=== PATIENT | female | born 1990 | race Caucasian/White ===

== ENCOUNTER 2017-10-13 18:55 | Emergency (ER) | payer OTHER ==
[~2017-10-13] VITALS: Ht 170.2 cm; Wt 59.1 kg
[2017-10-13 20:13] VITALS: BP 121/70
== END 2017-10-13 20:26 | disposition home or self-care (01) ==
LOC: EMS 18:55
DX: R21 Rash and other nonspecific skin eruption (principal); F17.210 Nicotine dependence, cigarettes, uncomplicated; J45.909 Unspecified asthma, uncomplicated; Z88.0 Allergy status to penicillin
CPT/HCPCS: 99282; 99406

== ENCOUNTER 2018-04-10 18:28 | Emergency (ER) | payer OTHER ==
[~2018-04-10] VITALS: Ht 170.2 cm; Wt 58.2 kg
[2018-04-10 19:12] VITALS: BP 121/72
[2018-04-10 20:03] LABS: BASOPHILS % (AUTO) 0.4 % (0.0-2.0); EOSINOPHILS % (AUTO) 1.6 % (1.0-6.0); HEMATOCRIT 35.8 % (36-46); LYMPHOCYTES # (AUTO) 1.1 K/uL (1.0-4.8); LYMPHOCYTES % (AUTO) 19.8 % (22.0-44.0); MEAN CORPUSCULAR HEMOGLOBIN 26.3 pg (26.0-34.0); MEAN CORPUSCULAR HGB CONC 33.6 G/dL (31.0-37.0); MEAN CORPUSCULAR VOLUME 78 fL (80-100); MONOCYTES # (AUTO) 0.6 K/uL (0.1-1.0); MONOCYTES % (AUTO) 10.9 % (2.0-9.0); NEUTROPHILS # (AUTO) 3.7 K/uL (1.8-7.7); NEUTROPHILS % (AUTO) 67.3 % (40.0-70.0); PLATELET COUNT (AUTO) 204 K/uL (150-450); RED BLOOD CELL COUNT(AUTO) 4.58 MIL/uL (4.00-5.20); RED CELL DISTRIBUTION WIDTH 17.5 % (11.5-14.5)
[2018-04-10 20:17] LABS: ANION GAP 6 mmol/L (8-16); CALCIUM, TOTAL 8.9 mg/dL (8.8-10.5); CARBON DIOXIDE 30 mmol/L (22-29); CHLORIDE 102 mmol/L (98-107); CREATININE 0.83 mg/dL (0.60-1.30); GLOMERULAR FILTR. RATE CALC > 60 mL/min (>60); GLUCOSE,RANDOM 92 mg/dL (70-110); POTASSIUM 3.9 mmol/L (3.5-5.1); SODIUM SERUM 138 mmol/L (136-145); UREA NITROGEN, BLOOD 18 mg/dL (7-18)
[2018-04-10 20:30] LABS: ALANINE AMINOTRANSFERASE 26 U/L (12-78); ALBUMIN 4.1 g/dL (3.4-5.0); ALKALINE PHOSPHATASE 45 U/L (46-116); ASPARTATE AMINOTRANSFERASE 22 U/L (15-37); BILIRUBIN,TOTAL 0.4 mg/dL (0.1-1.0); HCG,QUANTITATIVE < 1 mIU/mL (0-6)
== END 2018-04-10 21:26 | disposition home or self-care (01) ==
LOC: EMS 18:28
DX: R07.89 Other chest pain (principal); J45.909 Unspecified asthma, uncomplicated; F12.90 Cannabis use, unspecified, uncomplicated; Z88.0 Allergy status to penicillin
CPT/HCPCS: 93005

== ENCOUNTER 2019-01-21 17:32 | Emergency (ER) | payer OTHER ==
[~2019-01-21] VITALS: Ht 172.7 cm; Wt 68.2 kg
[2019-01-21] MEDS ORDERED: BIRTH CONTROL PO (17:44)
[2019-01-21] MEDS ORDERED: IBUPROFEN 400 MG TABLET PO ONE (19:00)
[2019-01-21 19:41] VITALS: BP 130/74
== END 2019-01-21 19:42 | disposition home or self-care (01) ==
LOC: EMS 17:32
DX: S46.811A Strain of other muscles, fascia and tendons at shoulder and upper arm level, right arm, initial encounter (principal); J45.909 Unspecified asthma, uncomplicated; F17.210 Nicotine dependence, cigarettes, uncomplicated; F12.90 Cannabis use, unspecified, uncomplicated; Z88.0 Allergy status to penicillin; X50.0XXA Overexertion from strenuous movement or load, initial encounter; Y93.89 Activity, other specified; Y92.89 Other specified places as the place of occurrence of the external cause; Y99.8 Other external cause status

== ENCOUNTER 2022-04-28 22:43 | Emergency (ER) | payer OTHER ==
[~2022-04-28] VITALS: Ht 170.2 cm; Wt 59.1 kg
[~2022-04-28 22:43] MED LIST: BIRTH CONTROL PO
[2022-04-28 22:58] VITALS: BP 143/88
== END 2022-04-28 23:47 | disposition home or self-care (01) ==
LOC: EMS 22:46
DX: S63.502A Unspecified sprain of left wrist, initial encounter (principal); J45.909 Unspecified asthma, uncomplicated; F17.210 Nicotine dependence, cigarettes, uncomplicated; F12.90 Cannabis use, unspecified, uncomplicated; Z88.0 Allergy status to penicillin; Y04.8XXA Assault by other bodily force, initial encounter; Y93.89 Activity, other specified; Y92.89 Other specified places as the place of occurrence of the external cause; Y99.8 Other external cause status
CPT/HCPCS: 99283

== ENCOUNTER 2024-02-13 15:43 | Emergency (ER) | payer OTHER ==
[~2024-02-13] VITALS: Ht 170.2 cm; Wt 54.5 kg
[2024-02-13 15:49] VITALS: BP 109/84; PULSE 85; RESP 16; TEMP 99.6; O2SAT 100
[2024-02-13 16:03] LABS: COVID AG,FIA SOURCE NASAL SWAB
[2024-02-13 16:33] LABS: SARS-COV2 (COVID) ANTIGEN,FIA Negative (Negative)
[2024-02-13 16:36] LABS: INFLUENZA TYPE A NEGATIVE FOR TYPE A (NEGATIVE); INFLUENZA TYPE B NEGATIVE FOR TYPE B (NEGATIVE)
[2024-02-13] MEDS ORDERED: HYDR-4062 PO (17:29)
[2024-02-13] MEDS ORDERED: GUAIFDM PO (17:29)
[2024-02-13] MEDS ORDERED: IBUP-1554 PO (17:29)
[2024-02-13] MEDS ORDERED: PSEU-191 PO (17:29)
== END 2024-02-13 17:44 | disposition home or self-care (01) ==
LOC: EMS 15:51
DX: J06.9 Acute upper respiratory infection, unspecified (principal); J45.909 Unspecified asthma, uncomplicated; F12.90 Cannabis use, unspecified, uncomplicated; F17.210 Nicotine dependence, cigarettes, uncomplicated; Z88.0 Allergy status to penicillin; Z79.3 Long term (current) use of hormonal contraceptives; Z87.440 Personal history of urinary (tract) infections; Z20.822 Contact with and (suspected) exposure to COVID-19
CPT/HCPCS: 87804; 99283

== ENCOUNTER 2024-06-29 01:07 | Emergency (ER) | payer OTHER ==
[~2024-06-29] VITALS: Ht 170.2 cm; Wt 54.5 kg
[~2024-06-29 01:07] MED LIST changes: +GUAIFDM PO; +HYDR-4062 PO; +IBUP-1554 PO; +PSEU-191 PO
[2024-06-29 01:11] VITALS: TEMP 98.5
[2024-06-29 01:26] LABS: COVID AG,FIA SOURCE NASAL SWAB
[2024-06-29 01:42] VITALS: BP 121/78; PULSE 85; RESP 20; O2SAT 100
[2024-06-29 01:55] LABS: SARS-COV2 (COVID) ANTIGEN,FIA Negative (Negative)
[2024-06-29 01:57] LABS: INFLUENZA TYPE A NEGATIVE FOR TYPE A (NEGATIVE); INFLUENZA TYPE B NEGATIVE FOR TYPE B (NEGATIVE)
[2024-06-29] MEDS: KETOROLAC TROMETHAMINE 30 MG/ML VIAL IM ONE (01:58)
[2024-06-29] MEDS: DEXAMETHASONE 4 MG TABLET PO ONE (01:59)
[2024-06-29] MEDS ORDERED: PROM118S5 PO (02:00)
== END 2024-06-29 02:16 | disposition home or self-care (01) ==
LOC: EMS 01:07
DX: J06.9 Acute upper respiratory infection, unspecified (principal); B97.89 Other viral agents as the cause of diseases classified elsewhere; J45.909 Unspecified asthma, uncomplicated; F12.90 Cannabis use, unspecified, uncomplicated; F17.210 Nicotine dependence, cigarettes, uncomplicated; Z88.0 Allergy status to penicillin; Z79.3 Long term (current) use of hormonal contraceptives; Z87.440 Personal history of urinary (tract) infections; Z20.822 Contact with and (suspected) exposure to COVID-19
CPT/HCPCS: 99283; 87426; 87804; 96372; J1885; J8540